=== PATIENT | female | born 1945 | race Caucasian/White ===

== ENCOUNTER 2016-08-06 14:19 | Inpatient (IN) | payer MEDICARE, OTHER ==
[~2016-08-06] VITALS: Ht 175.3 cm; Wt 76.5 kg
[~2016-08-06 14:19] MED LIST: CARV3.122 PO; CHOL10003 PO; CITA20TA9 PO; CYAN25008 PO; GUAI118L20 PO; LEVO100T5 PO; LEVO500T8 PO; LOSA25TA4 PO
[2016-08-06 15:00] VITALS: BP 125/67
[2016-08-06] MEDS ORDERED: 0.9 % SODIUM CHLORIDE 10 ML DISP.SYRIN. IV PRN (15:00)
[2016-08-06] MEDS ORDERED: MAG HYDROX/ALUMINUM HYD/SIMETH 30 ML ORAL.SUSP PO PRN (15:00)
[2016-08-06 15:20] VITALS: BP 122/64
--- NOTE | 2016-08-06 15:22 | PDOC1 ---
KI HYATT SUPPLY CONTROLLER 08/06/16 1522: History and Physical Visit Information Date of Admission: Aug 06, 2016 at 14:20 Source: Chart review, Patient History of Present Illness History of Present Illness This is a pleasant 71 yo female admitted for complains of SOA. Pt was seen briefly in our office and was noted with symptoms of acute CHF. Reports that in the last 3 months she has been having SOA and PEREIRA but not as bad as it has been in the last 2 weeks. She thought that this was related to bad reflux. In the last 2 weeks she has noticed her legs become more swollen, increasing PEREIRA, SOA at rest. orthopnea, PND, feeling bloated and anorexia. Her activity tolerance has been reduced significantly. Denies any chest pain,palpitations. She has been compliant with medications but does not utilize any diuretics. She is significant for nonobstructive CAD, past NICM and TIA on 01/2016. Denies any recent long distance travel and no prior VTE. Current Problem List Problems: (1) CAD (coronary artery disease) (2) Hypertension (3) Hyperlipidemia (4) Hypothyroidism (5) Venous (peripheral) insufficiency (6) Acute CHF Cardiac Risk Factors Cardiac Risk Factors: Hypertension, Hyperlipidemia, Other (CAD) Past Medical History Cardiovascular: CAD, CHF, HTN, Other (NICM) Pulmonary: Pneumonia, Other (pulmonary nodule) CENTRAL NERVOUS SYSTEM: TIA GI: No pertinent hx Heme/Onc: No pertinent hx Hepatobiliary: No pertinent hx Psych: Anxiety Musculoskeletal: Osteoarthritis Infectious disease: No pertinent hx ENT: Allergic Rhinitis Renal/: No pertinent hx Endocrine: Hypothyroidism Dermatology: No pertinent hx Past Surgical History Past Surgical History: Appendectomy, Tubal Ligation, Tonsillectomy, Hysterectomy Allergies Allergies Allergies Coded Allergies Type Severity Reaction Last Updated Verified No Known Drug Allergies 01/19/15 No Social History Smoke: No ALCOHOL: none Drugs: None Lives: with Family Family History Family History: Coronary Artery Disease (father and mother) ROS Review of System 14 point ROS evaluated with pertinent positives noted per HPI Physical Exam General: Alert, Oriented X3, Cooperative, mild distress HEENT: Atraumatic, Mucous membr. moist/pink Lungs: Other (bibasilar crackles) Heart: Regular rate, Normal S1, Normal S2, Other (3/6 systolic murmur to LLS border; S3) CHEST: Shortness of Breath, SOB with Exertion Abdomen: Soft, No tenderness Extremities: No cyanosis, Other (3+ bilateral pitting edema) Skin: No breakdown, No significant lesion Neuro: Normal speech, Sensation intact ECG EKG: Sinus tachycardia VTE Prophylaxis Ordered VTE Prophylaxis Devices: Yes VTE Pharmacological Prophylaxi: No Assessment/Plan Assessment/Plan Conclusion: [facility] 1. 50% stenosis involving the right coronary artery. No significant stenosis noted. 2. Severe global left ventricle systolic dysfunction with ejection fraction estimated at 25%. 3. 1-2 plus mitral regurgitation. No aortic stenosis. Recommendations Optimization of medical therapy for severe nonischemic cardiomyopathy. Repeat 2 -D echo in 3 months to evaluate the need for AICD implantation for primary prevention of sudden cardiac . DATE: 01/19/15906 <Conclusion> TTE Moderate LV systolic dysfunction with global hypokinesis. EF 35% No significant valvular abnormalities. Mild pulmonary hypertension with an estimated RVSP of 42 mm Hg. Small pericardial effusion. Moderate pleural effusion. DATE: 01/10/15905 1. Acute on chronic combined systolic/diastolic CHF 2. Peripheral venous insufficiency 3. Nonobstructive CAD 4. NICM 5. HLP 6. HTN: controlled 7. Hypothyroidism 8. Recent TIA: 01/2016 noted 9. Pericardial effusion via recent CT chest (not in this facility) Recommendations 1. Start IV lasix therapy 2. VTE and GI prophylaxis 3. Serial cardiac enzymes 4. CMP, Mg, TSH, lipid panel, pro NT bnp 5. TTE. MPI tomorrow. EKG 6. LE venous reflux studies 7. CXR PA and LAT. 8. Continue with secondary prevention 9. Continue with home meds. PRINCE MEZA MD 08/07/16 0816: History and Physical Assessment/Plan Assessment/Plan Patient seen and examined 08/06/16. Agree with ACID PUMPER's assessment and plan. Start intravenous Lasix for acute on chronic combined systolic and diastolic heart failure. Check 2-D echo to evaluate pericardial effusion noted on CT scan. Since she has history of nonobstructive coronary artery disease and is presently complaining of chest pain, we will obtain Lexiscan nuclear stress test to rule out ischemia. Resume home medications. Problem Qualifiers (1) CAD (coronary artery disease): Associated angina: without angina (2) Hypertension: Hypertension type: essential hypertension Qualified Code: I10 - Essential ( primary) hypertension (3) Hyperlipidemia: Hyperlipidemia type: pure hypercholesterolemia Qualified Code: E78.00 - Pure hypercholesterolemia, unspecified (4) Hypothyroidism: Hypothyroidism type: acquired Qualified Code: E03.9 - Hypothyroidism, unspecified (5) Acute CHF: Congestive heart failure type: combined Qualified Code: I50.41 - Acute combined systolic (congestive) and diastolic (congestive) heart failure KI HYATT APRN Aug 06, 2016 15:22 PRINCE MEZA MD Aug 07, 2016 08:16
[2016-08-06 15:35] LABS: BASO # 0.1 x10^3/uL (0.0-0.2); BASO % 1 % (0-3); EOS % 10 % (0-3); HEMOGLOBIN 9.2 g/dL (12.0-15.5); LYMPH % 36 % (24-48); MEAN CORPUSCULAR HEMOGLOBIN 32 pg (25-35); MEAN CORPUSCULAR HGB CONC 33 g/dL (31-37); MEAN CORPUSCULAR VOLUME 97 fL (79-100); MONO % 7 % (0-9); NEUT % 45 % (31-73); PLATELET COUNT 269 x10^3/uL (140-400); RED BLOOD COUNT 2.88 x10^6/uL (3.50-5.40); RED CELL DISTRIBUTION WIDTH 15.6 % (11.5-14.5); WHITE BLOOD COUNT 5.4 x10^3/uL (4.0-11.0)
[2016-08-06 15:42] LABS: INR 1.1 (0.8-1.1); PROTHROMBIN TIME PATIENT 13.4 SEC (11.7-14.0)
--- NOTE | 2016-08-06 15:44 | EKG ---
[facility] [address] [place] [address] Test Date: 2016-08-06 Test Time: 15:42:22 Pat Name: PAULA ROMAN Department: Room: 266 1 Gender: F Temporary Data Entry Clerk: : 1945 Requested By: KI HYATT Order Number: [id number] Reading MD: Jules Robbins Measurements Intervals [place] Rate: 90 P: 8 AK: 146 QRS: 64 QRSD: 120 T: -35 QT: 388 QTc: 479 Interpretive Statements SINUS RHYTHM VENTRICULAR PREMATURE COMPLEX(ES) LOW LIMB LEAD VOLTAGE ST & T ABNORMALITY, CONSIDER RECENT ANTERIOR MYOCARDIAL OR PERICARDIAL DAMAGE ABNORMAL ECG RI6.01 No previous ECG available for comparison Electronically Signed On 08-11-2016 13:37:07 [employer] ARCHITECT by Jules Robbins
[2016-08-06 15:53] LABS: ALBUMIN 3.4 g/dL (3.4-5.0); ALBUMIN/GLOBULIN RATIO 1.1 (1.0-1.7); CALCIUM 10.5 mg/dL (8.5-10.1); CREATININE 1.3 mg/dL (0.6-1.0); GFR 40.2; MAGNESIUM 1.9 mg/dL (1.8-2.4); POTASSIUM 4.3 mmol/L (3.5-5.1); TOTAL BILIRUBIN 1.5 mg/dL (0.2-1.0); TOTAL PROTEIN 6.5 g/dL (6.4-8.2)
[2016-08-06 16:01] LABS: CREATINE KINASE 28 U/L (26-192)
[2016-08-06] MEDS ORDERED: CALC500T10 PO (16:16)
[2016-08-06] MEDS ORDERED: ATOR40TA59 PO (16:16)
[2016-08-06] MEDS ORDERED: ASPI81TA9 PO (16:16)
[2016-08-06] MEDS: LEVOTHYROXINE 100 MCG TABLET PO SCH (17:00)
[2016-08-06] MEDS ORDERED: CARVEDILOL 3.125 MG TABLET PO SCH (17:00)
[2016-08-06] MEDS ORDERED: CITALOPRAM 20 MG TABLET. PO SCH (17:00)
[2016-08-06] MEDS: LOSARTAN POTASSIUM 25 MG TABLET. PO SCH (17:00)
[2016-08-06] MEDS: ASPIRIN ENTERIC COATED 81 MG TABLET.DR. PO SCH (17:00)
[2016-08-06] MEDS: FUROSEMIDE 40 MG/4 ML VIAL IVP SCH (17:40)
[2016-08-06 17:54] LABS: BILIRUBIN,URINE NEGATIVE (NEG); GLUCOSE,URINE NEGATIVE (NEG); NITRITE,URINE NEGATIVE (NEG); PH,URINE 5.5; PROTEIN,URINE 100 mg/dL (NEG-TRACE)
[2016-08-06 18:05] LABS: WBC,URINE >40 /HPF (0-4)
[2016-08-06 18:07] LABS: BACTERIA,URINE 0 /HPF (0-FEW)
[2016-08-06 18:48] VITALS: BP 108/53
[2016-08-06] MEDS: FAMOTIDINE 20 MG TABLET. PO SCH (20:17)
[2016-08-06] MEDS: ATORVASTATIN CALCIUM 40 MG TABLET. PO SCH (20:18)
[2016-08-06] MEDS: CARVEDILOL 3.125 MG TABLET PO SCH (20:18)
[2016-08-06] MEDS: ENOXAPARIN 40 MG/0.4 ML DISP.SYRIN. SQ SCH (20:18)
[2016-08-06 22:38] VITALS: BP 120/57
[2016-08-07 03:00] VITALS: BP 127/60
[2016-08-07 05:46] LABS: BASO # 0.1 x10^3/uL (0.0-0.2); BASO % 1 % (0-3); EOS % 9 % (0-3); HEMATOCRIT 26.7 % (36.0-47.0); LYMPH # 1.7 x10^3/uL (1.0-4.8); LYMPH % 31 % (24-48); MEAN CORPUSCULAR HEMOGLOBIN 32 pg (25-35); MEAN CORPUSCULAR HGB CONC 34 g/dL (31-37); MEAN CORPUSCULAR VOLUME 96 fL (79-100); MONO % 8 % (0-9); NEUT % 52 % (31-73); PLATELET COUNT 253 x10^3/uL (140-400); RED BLOOD COUNT 2.79 x10^6/uL (3.50-5.40); RED CELL DISTRIBUTION WIDTH 15.8 % (11.5-14.5); WHITE BLOOD COUNT 5.5 x10^3/uL (4.0-11.0)
[2016-08-07 06:11] LABS: CALCIUM 10.3 mg/dL (8.5-10.1); CREATININE 1.6 mg/dL (0.6-1.0); GFR 31.6; MAGNESIUM 1.8 mg/dL (1.8-2.4); POTASSIUM 3.9 mmol/L (3.5-5.1)
[2016-08-07 06:19] LABS: CHOLESTEROL/HDL RATIO 2.6
[2016-08-07] MEDS: LEVOTHYROXINE 100 MCG TABLET PO SCH (06:25)
[2016-08-07] MEDS: FUROSEMIDE 40 MG/4 ML VIAL IVP SCH ×2 (07:00→11:31)
[2016-08-07 07:44] VITALS: BP 120/63
[2016-08-07] MEDS ORDERED: REGADENOSON 0.4 MG/5 ML DISP.SYRIN. IV ONE (08:00)
--- NOTE | 2016-08-07 08:21 | RAD ---
Exam performed: 2 views of the chest. Indication: chf, history of hypertension Date of Service:08/06/2016 4:58 PM . Comparison : Noncontrast CT scan performed during nuclear medicine PET scan from 04/12/17 Findings: PA and lateral radiographs of the chest reveal a mildly enlarged cardiomediastinal contour. Pulmonary vascularity appears unremarkable. Small retrocardiac opacity is noted. Small left pleural effusion. The visualized osseous structures are unremarkable. Impression: Apparent cardiomegaly with small left pleural effusion. Right paracardiac/Retrocardiac density is noted which could be related to a hiatal hernia or infiltrate. Note is made that no definite hiatal hernia was identified on the noncontrast images. Follow-up chest x-ray versus noncontrast CT scan may be of additional benefit.
--- NOTE | 2016-08-07 10:35 | PDOC ---
KI HYATT SURVEY ENGINEER 08/07/16 1035: CARDIO Progress Notes Date and Time Date of Service 08/07/2016 Time of Evaluation 1000 Subjective Subjective: No Chest Pain, No shortness of breath, No Palpitations, No Dizziness, Other (still have heavy feeling in mid chest) Vitals Vitals Vital Signs Date Time Temp Pulse Resp B/P Pulse Ox O2 Delivery O2 Flow Rate FiO2 08/07/16 08:00 Room Air 08/07/16 07:44 97.3 70 16 120/63 94 97.3 Weight Weight [ ] Input and Output Intake and Output Intake and Output 08/07/16 07:00 Intake Total 0 ml Output Total 2750 ml Balance -2750 ml Intake Oral 0 ml Output Urine Total 2750 ml Laboratory Labs Laboratory Tests Test 08/06/16 15:20 08/06/16 16:10 08/06/16 18:15 08/07/16 00:20 White Blood Count 5.4x10^3/uL (4.0-11.0) Red Blood Count 2.88x10^6/uL (3.50-5.40) Hemoglobin 9.2g/dL (12.0-15.5) Hematocrit 28.0% (36.0-47.0) Mean Corpuscular Volume 97fL (79-100) Mean Corpuscular Hemoglobin 32pg (25-35) Mean Corpuscular Hemoglobin Concent 33g/dL (31-37) Red Cell Distribution Width 15.6% (11.5-14.5) Platelet Count 269x10^3/uL (140-400) Neutrophils (%) (Auto) 45% (31-73) Lymphocytes (%) (Auto) 36% (24-48) Monocytes (%) (Auto) 7% (0-9) Eosinophils (%) (Auto) 10% (0-3) Basophils (%) (Auto) 1% (0-3) Neutrophils # (Auto) 2.4x10^3uL (1.8-7.7) Lymphocytes # (Auto) 2.0x10^3/uL (1.0-4.8) Monocytes # (Auto) 0.4x10^3/uL (0.0-1.1) Eosinophils # (Auto) 0.5x10^3/uL (0.0-0.7) Basophils # (Auto) 0.1x10^3/uL (0.0-0.2) Prothrombin Time 13.4SEC (11.7-14.0) Prothromb Time International Ratio 1.1 (0.8-1.1) Sodium Level 143mmol/L (136-145) Potassium Level 4.3mmol/L (3.5-5.1) Chloride Level 107mmol/L (98-107) Carbon Dioxide Level 27mmol/L (21-32) Anion Gap 9 (6-14) Blood Urea Nitrogen 32mg/dL (7-20) Creatinine 1.3mg/dL (0.6-1.0) Estimated GFR (Cockcroft-Gault) 40.2 BUN/Creatinine Ratio 25 (6-20) Glucose Level 98mg/dL (70-99) Calcium Level 10.5mg/dL (8.5-10.1) Magnesium Level 1.9mg/dL (1.8-2.4) Total Bilirubin 1.5mg/dL (0.2-1.0) Aspartate Amino Transf (AST/SGOT) 23U/L (15-37) Alanine Aminotransferase (ALT/SGPT) 35U/L (14-59) Alkaline Phosphatase 161U/L (46-116) Creatine Kinase 28U/L (26-192) Creatine Kinase MB (Mass) 1.0ng/mL (0.0-3.6) Creatine Kinase MB Relative Index % (0-4) CY-Blu-P-Type Natriuretic Peptide 9279pg/mL (0-124) Total Protein 6.5g/dL (6.4-8.2) Albumin 3.4g/dL (3.4-5.0) Albumin/Globulin Ratio 1.1 (1.0-1.7) Thyroid Stimulating Hormone (TSH) 4.682uIU/mL (0.358-3.74) Urine Collection Type Unknown Urine Color Yellow Urine Clarity Clear Urine pH 5.5 Urine Specific [place] 1.025 Urine Protein 100mg/dL (NEG-TRACE) Urine Glucose (UA) Negativemg/dL (NEG) Urine Ketones (Stick) Negativemg/dL (NEG) Urine Blood Moderate (NEG) Urine Nitrite Negative (NEG) Urine Bilirubin Negative (NEG) Urine Urobilinogen Dipstick 1.0mg/dL (0.2 mg/dL) Urine Leukocyte Esterase Negative (NEG) Urine RBC 6-10/HPF (0-2) Urine WBC >40/HPF (0-4) Urine Bacteria 0/HPF (0-FEW) Urine Hyaline Casts Moderate/HPF Urine Granular Casts Occasional/HPF Urine Waxy Casts Occasional/HPF Urine Mucus Slight/LPF Troponin I Quantitative 0.019ng/mL (0.000-0.055) 0.019ng/mL (0.000-0.055) Test 08/07/16 05:45 White Blood Count 5.5x10^3/uL (4.0-11.0) Red Blood Count 2.79x10^6/uL (3.50-5.40) Hemoglobin 9.0g/dL (12.0-15.5) Hematocrit 26.7% (36.0-47.0) Mean Corpuscular Volume 96fL (79-100) Mean Corpuscular Hemoglobin 32pg (25-35) Mean Corpuscular Hemoglobin Concent 34g/dL (31-37) Red Cell Distribution Width 15.8% (11.5-14.5) Platelet Count 253x10^3/uL (140-400) Neutrophils (%) (Auto) 52% (31-73) Lymphocytes (%) (Auto) 31% (24-48) Monocytes (%) (Auto) 8% (0-9) Eosinophils (%) (Auto) 9% (0-3) Basophils (%) (Auto) 1% (0-3) Neutrophils # (Auto) 2.9x10^3uL (1.8-7.7) Lymphocytes # (Auto) 1.7x10^3/uL (1.0-4.8) Monocytes # (Auto) 0.4x10^3/uL (0.0-1.1) Eosinophils # (Auto) 0.5x10^3/uL (0.0-0.7) Basophils # (Auto) 0.1x10^3/uL (0.0-0.2) Sodium Level 144mmol/L (136-145) Potassium Level 3.9mmol/L (3.5-5.1) Chloride Level 108mmol/L (98-107) Carbon Dioxide Level 30mmol/L (21-32) Anion Gap 6 (6-14) Blood Urea Nitrogen 30mg/dL (7-20) Creatinine 1.6mg/dL (0.6-1.0) Estimated GFR (Cockcroft-Gault) 31.6 Glucose Level 106mg/dL (70-99) Calcium Level 10.3mg/dL (8.5-10.1) Magnesium Level 1.8mg/dL (1.8-2.4) Troponin I Quantitative 0.018ng/mL (0.000-0.055) Triglycerides Level 60mg/dL (0-150) Cholesterol Level 116mg/dL (0-200) LDL Cholesterol, Calculated 60mg/dL (0-100) VLDL Cholesterol, Calculated 12mg/dL (0-40) HDL Cholesterol 44mg/dL (40-60) Cholesterol/HDL Ratio 2.6 Physical Exam HEENT: Neck Supple W Full Motion Chest: Symmetric LUNGS: Clear to Auscultation Heart: S1S2, RRR Abdomen: Soft N/T Extremities: No Calf Tenderness, Other (2+ bilateral LE pitting edema) Neurology: alert, oriented, follow commands Assessment Assessment 1. Acute on chronic combined systolic/diastolic CHF: improving 2. Peripheral venous insufficiency 3. Nonobstructive CAD: serial cardiac enzymes normal 4. NICM 5. HLP: lipids on goal 6. HTN: controlled 7. Hypothyroidism: TSH nontherapeutic 8. Recent TIA: 01/2016 noted 9. Pericardial effusion via recent CT chest (at [place]) 10. Pulmonary HTN/pulmonary nodule: followed closely by pulmonary as outpt 11. 3 mm right renal calculus with microscopic hematuria Recommendations 1. Continue with diuretic therapy. Anticipating to convert to PO tomorrow 2. BMP, Mg 3. Venous reflux study pending 4. TTE/MPI today 5. Continue with secondary prevention 6. Consult urology 7. Increase Synthroid PRINCE MEZA MD 08/07/16 1651: CARDIO Progress Notes Assessment Assessment Patient seen and examined. Agree with HOME LIGHTING ADVISER's assessment and plan. Symptoms improved with intravenous Lasix. 2-D echo showed LVEF 50% that has improved since last echocardiogram. Lexiscan nuclear stress test did not show any significant ischemia. Venous reflux study showed significant reflux involving left greater saphenous vein. We will consider outpatient therapy as an outpatient. Possibly discharge home tomorrow. IK HYATT APRN Aug 07, 2016 10:35 PRINCE MEZA MD Aug 07, 2016 16:51
--- NOTE | 2016-08-07 10:48 | CARD ---
APPROVED REPORT EXAM: Two-dimensional and M-mode echocardiogram with Doppler and color Doppler. Other Information Quality : Average Rhythm : NSR INDICATION Cardiac Disease: CAD Congestive Heart Failure 2D DIMENSIONS RVDd2.7 (2.9-3.5cm)Left Atrium(2D)4.1 (1.6-4.0cm) IVSd1.6 (0.7-1.1cm)Aortic Root(2D)3.0 (2.0-3.7cm) LVDd4.7 (3.9-5.9cm)LVOT Diameter2.0 (1.8-2.4cm) PWd1.6 (0.7-1.1cm)LVDs3.4 (2.5-4.0cm) FS (%) 27.3 %SV55.4 ml LVEF(%)53.1 (>50%) Aortic Valve AoV Peak Alok.137.9cm/sAoV VTI24.7cm AO Peak GR.7.6mmHgLVOT Peak Alok.106.9cm/s AO Mean GR.5mmHgAVA (VMAX)2.45cm2 ANJEL (VTI)2.90gx6OV P 1/2 Ylje179db Mitral Valve MV E Xrbhmgxd234.4cm/sMV E Peak Gr.8mmHg MV DECEL WGSU544koLB A Jqivwbbn48.4cm/s MV E Mean Gr.4mmHgMV LWH78th E/A Ratio1.5MV A Ixmstnzc597az MVA (PHT)5.76cm2 Tricuspid Valve TR P. Jgmlmfjl958ka/sRAP BMQEDBYQ8xiKt TR Peak Gr.29seGdVTQD33lgBo Pulmonary Vein S1 Snqdztnj33.7cm/sD2 Pwwuebxs76.0cm/s LEFT VENTRICLE The left ventricle is normal size. There is mild concentric left ventricular hypertrophy. Left ventri kinza systolic function is low normal. The Ejection Fraction is 50%. There is normal LV segmental wall motion. The left ventricular diastolic function and filling is normal for age. RIGHT VENTRICLE The right ventricle is normal size. The right ventricular systolic function is normal. ATRIA The left atrium size is normal. The right atrium size is normal. The interatrial septum is intact wit h no evidence for an atrial septal defect or patent foramen ovale as noted on 2-D or Doppler imaging. AORTIC VALVE The aortic valve is normal in structure. The aortic valve is trileaflet. Doppler and Color Flow revea led moderate aortic regurgitation. There is no significant aortic valvular stenosis. MITRAL VALVE The mitral valve is normal in structure and function. There is no mitral valve stenosis. Doppler and Color Flow revealed mild to moderate mitral regurgitation. TRICUSPID VALVE The tricuspid valve is normal in structure and function. Doppler and Color Flow revealed mild to mode rate tricuspid regurgitation. The PA pressure was estimated at 46 mmHg. There is no tricuspid valve s tenosis. PULMONIC VALVE The pulmonic valve is not well visualized. Doppler and Color Flow revealed no pulmonic valvular regur gitation. There is no pulmonic valvular stenosis. GREAT VESSELS The aortic root is normal in size. Normal pulmonary venous flow (Doppler). The IVC is normal in size and collapses >50% with inspiration. PERICARDIAL EFFUSION There is a small-moderate pericardial effusion. Critical Notification Critical Value: No <Conclusion> Left ventricle systolic function is low normal. The Ejection Fraction is 50%. Moderate aortic regurgitation. Mild to moderate mitral regurgitation. Mild to moderate tricuspid regurgitation. The PA pressure was estimated at 46 mmHg. There is a small-moderate pericardial effusion.
[2016-08-07 11:00] VITALS: BP 118/63
[2016-08-07] MEDS: ASPIRIN ENTERIC COATED 81 MG TABLET.DR. PO SCH (11:29)
[2016-08-07] MEDS: CARVEDILOL 3.125 MG TABLET PO SCH ×2 (11:29→20:47)
[2016-08-07] MEDS: LOSARTAN POTASSIUM 25 MG TABLET. PO SCH (11:29)
--- NOTE | 2016-08-07 13:08 | PDOC ---
SUBJECTIVE Subjective Pt. with hx. of right renal stone and renal cysts OBJECTIVE Objective No symptoms Vital Signs Vital Signs Date Time Temp Pulse Resp B/P Pulse Ox O2 Delivery O2 Flow Rate FiO2 08/07/16 11:29 87 118/63 08/07/16 11:29 87 118/63 08/07/16 11:00 97.7 87 16 118/63 98 Room Air 97.7 08/07/16 08:00 Room Air 08/07/16 07:44 97.3 70 16 120/63 94 Room Air 97.3 08/07/16 03:00 98.0 84 16 127/60 98 Room Air 98.0 08/06/16 22:38 98.0 76 18 120/57 99 Room Air 98.0 08/06/16 20:18 85 108/53 08/06/16 19:26 Room Air 08/06/16 18:48 97.7 85 18 108/53 95 Room Air 97.7 08/06/16 18:22 Room Air 08/06/16 15:20 97.9 82 20 122/64 100 Room Air 97.9 08/06/16 15:00 125/67 I & O Intake and Output 08/07/16 07:00 Intake Total 0 ml Output Total 2750 ml Balance -2750 ml Intake Oral 0 ml Output Urine Total 2750 ml PHYSICAL EXAM Physical Exam abd-soft, non-tender UA-pos for rbcs and wbcs ASSESSMENT/PLAN Assessment/Plan get renal sono urine culture follow up with urology FABRIC FINISHER Claire Sheppard in 3 weeks Problems: COMMENT Lab Laboratory Tests Test 08/06/16 15:20 08/06/16 16:10 08/06/16 18:15 08/07/16 00:20 White Blood Count 5.4x10^3/uL (4.0-11.0) Red Blood Count 2.88x10^6/uL (3.50-5.40) Hemoglobin 9.2g/dL (12.0-15.5) Hematocrit 28.0% (36.0-47.0) Mean Corpuscular Volume 97fL (79-100) Mean Corpuscular Hemoglobin 32pg (25-35) Mean Corpuscular Hemoglobin Concent 33g/dL (31-37) Red Cell Distribution Width 15.6% (11.5-14.5) Platelet Count 269x10^3/uL (140-400) Neutrophils (%) (Auto) 45% (31-73) Lymphocytes (%) (Auto) 36% (24-48) Monocytes (%) (Auto) 7% (0-9) Eosinophils (%) (Auto) 10% (0-3) Basophils (%) (Auto) 1% (0-3) Neutrophils # (Auto) 2.4x10^3uL (1.8-7.7) Lymphocytes # (Auto) 2.0x10^3/uL (1.0-4.8) Monocytes # (Auto) 0.4x10^3/uL (0.0-1.1) Eosinophils # (Auto) 0.5x10^3/uL (0.0-0.7) Basophils # (Auto) 0.1x10^3/uL (0.0-0.2) Prothrombin Time 13.4SEC (11.7-14.0) Prothromb Time International Ratio 1.1 (0.8-1.1) Sodium Level 143mmol/L (136-145) Potassium Level 4.3mmol/L (3.5-5.1) Chloride Level 107mmol/L (98-107) Carbon Dioxide Level 27mmol/L (21-32) Anion Gap 9 (6-14) Blood Urea Nitrogen 32mg/dL (7-20) Creatinine 1.3mg/dL (0.6-1.0) Estimated GFR (Cockcroft-Gault) 40.2 BUN/Creatinine Ratio 25 (6-20) Glucose Level 98mg/dL (70-99) Calcium Level 10.5mg/dL (8.5-10.1) Magnesium Level 1.9mg/dL (1.8-2.4) Total Bilirubin 1.5mg/dL (0.2-1.0) Aspartate Amino Transf (AST/SGOT) 23U/L (15-37) Alanine Aminotransferase (ALT/SGPT) 35U/L (14-59) Alkaline Phosphatase 161U/L (46-116) Creatine Kinase 28U/L (26-192) Creatine Kinase MB (Mass) 1.0ng/mL (0.0-3.6) Creatine Kinase MB Relative Index % (0-4) NC-Ctj-R-Type Natriuretic Peptide 9279pg/mL (0-124) Total Protein 6.5g/dL (6.4-8.2) Albumin 3.4g/dL (3.4-5.0) Albumin/Globulin Ratio 1.1 (1.0-1.7) Thyroid Stimulating Hormone (TSH) 4.682uIU/mL (0.358-3.74) Urine Collection Type Unknown Urine Color Yellow Urine Clarity Clear Urine pH 5.5 Urine Specific [place] 1.025 Urine Protein 100mg/dL (NEG-TRACE) Urine Glucose (UA) Negativemg/dL (NEG) Urine Ketones (Stick) Negativemg/dL (NEG) Urine Blood Moderate (NEG) Urine Nitrite Negative (NEG) Urine Bilirubin Negative (NEG) Urine Urobilinogen Dipstick 1.0mg/dL (0.2 mg/dL) Urine Leukocyte Esterase Negative (NEG) Urine RBC 6-10/HPF (0-2) Urine WBC >40/HPF (0-4) Urine Bacteria 0/HPF (0-FEW) Urine Hyaline Casts Moderate/HPF Urine Granular Casts Occasional/HPF Urine Waxy Casts Occasional/HPF Urine Mucus Slight/LPF Troponin I Quantitative 0.019ng/mL (0.000-0.055) 0.019ng/mL (0.000-0.055) Test 08/07/16 05:45 White Blood Count 5.5x10^3/uL (4.0-11.0) Red Blood Count 2.79x10^6/uL (3.50-5.40) Hemoglobin 9.0g/dL (12.0-15.5) Hematocrit 26.7% (36.0-47.0) Mean Corpuscular Volume 96fL (79-100) Mean Corpuscular Hemoglobin 32pg (25-35) Mean Corpuscular Hemoglobin Concent 34g/dL (31-37) Red Cell Distribution Width 15.8% (11.5-14.5) Platelet Count 253x10^3/uL (140-400) Neutrophils (%) (Auto) 52% (31-73) Lymphocytes (%) (Auto) 31% (24-48) Monocytes (%) (Auto) 8% (0-9) Eosinophils (%) (Auto) 9% (0-3) Basophils (%) (Auto) 1% (0-3) Neutrophils # (Auto) 2.9x10^3uL (1.8-7.7) Lymphocytes # (Auto) 1.7x10^3/uL (1.0-4.8) Monocytes # (Auto) 0.4x10^3/uL (0.0-1.1) Eosinophils # (Auto) 0.5x10^3/uL (0.0-0.7) Basophils # (Auto) 0.1x10^3/uL (0.0-0.2) Sodium Level 144mmol/L (136-145) Potassium Level 3.9mmol/L (3.5-5.1) Chloride Level 108mmol/L (98-107) Carbon Dioxide Level 30mmol/L (21-32) Anion Gap 6 (6-14) Blood Urea Nitrogen 30mg/dL (7-20) Creatinine 1.6mg/dL (0.6-1.0) Estimated GFR (Cockcroft-Gault) 31.6 Glucose Level 106mg/dL (70-99) Calcium Level 10.3mg/dL (8.5-10.1) Magnesium Level 1.8mg/dL (1.8-2.4) Troponin I Quantitative 0.018ng/mL (0.000-0.055) Triglycerides Level 60mg/dL (0-150) Cholesterol Level 116mg/dL (0-200) LDL Cholesterol, Calculated 60mg/dL (0-100) VLDL Cholesterol, Calculated 12mg/dL (0-40) HDL Cholesterol 44mg/dL (40-60) Cholesterol/HDL Ratio 2.6 SAL CORONA MD Aug 07, 2016 13:08
--- NOTE | 2016-08-07 13:32 | RAD ---
APPROVED REPORT Test Type: Pharmacological Stress Nurse/Tech: Olena Munoz RN Test Indications: CHF, CAD, Dyspnea Cardiac History: see ehr Medications: see ehr Medical History: see ehr Resting ECG: SR Resting Heart Rate: 85 bpm Resting Blood Pressure: 109/57mmHg Pretest Chest Pain: None Nurse/Tech Notes Lungs CTA, S1, S2 Consent: The procedure was explained to the patient in lay terms. Informed consent was witnessed. Giancarlo eout was entered into [employer]. History and Stress Test performed by David SorensenNМария Pharm. Details Pharmacologic stress testing was performed using 0.4mg per 5ml of regadenoson given intravenously ove r 7-10 seconds. Stress Symptoms No chest pain or symptoms. POST EXERCISE Reason for Termination: Infusion complete Max HR: 117 bpm Max Blood Pressure: 116/53mmHg Blood Pressure response to exercise: Normal blood pressure response during stress. Chest Pain: No. Arrhythmia: No. ST Change: No. INTERPRETATION Stress EKG Conclusion: Baseline EKG showed sinus rhythm with IVCD. No ischemic changes at peak stres s. No arrhythmias. Imaging Protocol IMAGE PROTOCOL: Rest Tc-99m/stress Tc-99m 1 day Rest: Stress: Viability: Radiopharm.Tc99m YmkrgurqkNk89e Sestamibi Qwwz56dKf 32mCi Duration 15min. 10min. Img Date 08/07/2016 08/07/2016 Inj-Img Ntzl62pva. 60min. Rest Admin Site:IV - Left ForearmAdministrator:Laura Lion RT (R)(N) Stress Admin Site: IV - Left ForearmAdministrator: Sachin Richard RT (R)(N) STRESS DATA End Diast. Vol.130.0mlAv. Heart Rate87.0bpm End Syst. Vol.62.0mlCO Index BSA0.0L/min Myocardial Gwsu144.0gEject. Fstqqjvt12.0% Stress Rates Pk. Fill Rate2.33EDV/secLVtime Pk. Fill 172.33msec Pk. Empty Rate3.83ESV/secLVtime Pk. Clzia430.54msec 06/10 Pk. Fill0.81EDV/sec Stress Scores Regional WT1.00Summed WT15.00 Regional WM0.00Summed WM3.00 Study quality was good. Left Ventricular size was Normal at Rest and Stress. Lung uptake was Normal. Left Ventricular ejection fraction is 52%. The rest and stress images show normal perfusion, normal contraction and thickening. LV Perf. Quant 17 Seg. SSS0.00 17 Seg. SRS0.00 17 Seg. SDS0.00 Stress Defect Extent (% LAD)0.00Rest Defect Extent (% LAD)0.00Rev. Defect Extent (% LAD)0.00 Stress Defect Extent (% LCX) 0.00Rest Defect Extent (% LCX)0.00Rev. Defect Extent (% LCX)0.00 Stress Defect Extent (% RCA)0.00Rest Defect Extent (% RCA)0.00Rev. Defect Extent (% RCA)0.00 Stress Defect Extent (% DAVID)0.00Rest Defect Extent (% DAVID)0.00Rev. Defect Extent (% DAVID)0.00 Conclusion 1. Regadenoson cardioisotope stress test did not show any evidence of ischemia or infarct. 2. Normal left ventricular systolic function with ejection fraction calculated at 52%. 3. Low risk for cardiac events.
--- NOTE | 2016-08-07 15:20 | RAD ---
Exam performed: Renal sonogram. Indication: History of renal cysts Date of Service: 08/07/16 . Comparison: Noncontrast CT abdomen and pelvis performed during nuclear medicine PET scan from 04/12/15 Technique: Real-time grayscale imaging of the kidneys is performed and images are obtained. Findings: The right kidney is asymmetrically smaller as compared to the left. The right kidney measures 9.4 x 4.3 x 4.1 cm. There is mild renal cortical thinning is noted. There is a 3.5 x 2.4 x 2.8 cm cyst in the inferior lateral portion of the right kidney. There is also a 2.7 x 1.8 x 2.0 cm septated cyst in the medial mid kidney. There is a 2.0 x 1.1 x 1.5 cm cyst also medially in the inferior pole. The left kidney measures 11.9 x 5.3 x 4.9 cm. There is a 2.6 x 2.0 x 2.1 cm cyst in the mid to inferior left kidney laterally. There is no hydronephrosis or perinephric fluid collection. The urinary bladder is well distended and appears normal. Impression: 1. Bilateral renal cysts including a somewhat septated cyst in the right kidney. CT or MRI of abdomen with contrast using a renal protocol may be obtained to rule out remote possibility of a cystic renal neoplasm.
[2016-08-07 15:28] VITALS: BP 121/60
[2016-08-07 18:53] VITALS: BP 115/60
[2016-08-07] MEDS: FAMOTIDINE 20 MG TABLET. PO SCH (20:47)
[2016-08-07] MEDS: ATORVASTATIN CALCIUM 40 MG TABLET. PO SCH (20:47)
[2016-08-07] MEDS: ENOXAPARIN 40 MG/0.4 ML DISP.SYRIN. SQ SCH (20:48)
[2016-08-07 23:00] VITALS: BP 116/50
[2016-08-08 03:00] VITALS: BP 117/50
[2016-08-08 04:43] LABS: CALCIUM 10.5 mg/dL (8.5-10.1); CREATININE 1.8 mg/dL (0.6-1.0); GFR 27.6; POTASSIUM 4.2 mmol/L (3.5-5.1)
--- NOTE | 2016-08-08 04:56 | CONS ---
DATE OF CONSULTATION: 08/07/2016 PATIENT'S ROOM: 266. HISTORY OF PRESENT ILLNESS: The patient is a very pleasant 71-year-old white female who was admitted to the Cardiology Service with shortness of breath and congestive heart failure. The patient was noted on recent chest CT to also have a right renal calculus and renal cyst. These are old finding, which were seen on previous scans several years ago. The patient is asymptomatic of her stone. She never passed a stone before. Her urine on admission showed 6-10 red cells and greater than 40 white cells, no bacteria. We will go ahead and get a culture; however, creatinine 1.6. The patient never had any urologic operation before. She has no urologic symptoms. Abdomen is soft, nontender, no CVA tenderness. I talked with the patient concerning her findings. We will go ahead and get a followup renal ultrasound for examination of her renal cyst as one of the right renal cysts appeared to be complex cysts several years ago. I do not recommend any further therapy on the right renal stone as it is nonobstructing and asymptomatic. We will get a culture and then treat if positive and the patient's creatinine has not returned normal range, we will have Nephrology consult, and then have patient follow up with Urology nurse practitioner, Claire Sheppard, in 3 weeks for followup urine check and then proceed accordingly. I certainly appreciate being allowed to participate in this patient's care. SLA CORONA MD DR: JONELLE/cheko JOB#: [id number] / [id number]
[2016-08-08] MEDS ORDERED: LEVOTHYROXINE 112 MCG TABLET PO SCH (07:00)
[2016-08-08 07:48] VITALS: BP 109/63
[2016-08-08 08:55] VITALS: BP 109/63
[2016-08-08] MEDS: CARVEDILOL 3.125 MG TABLET PO SCH (08:55)
[2016-08-08] MEDS: ASPIRIN ENTERIC COATED 81 MG TABLET.DR. PO SCH (08:55)
[2016-08-08] MEDS: LOSARTAN POTASSIUM 25 MG TABLET. PO SCH (08:55)
[2016-08-08] MEDS: FUROSEMIDE 40 MG/4 ML VIAL IVP SCH (09:00)
--- NOTE | 2016-08-08 10:15 | PDOC ---
SUBJECTIVE Subjective Patient is going home today. Has questions about her imaging OBJECTIVE Objective Pt alert and oriented in bed, asking questions. No distress noted Vital Signs Vital Signs Date Time Temp Pulse Resp B/P Pulse Ox O2 Delivery O2 Flow Rate FiO2 08/08/16 08:55 84 109/63 08/08/16 08:55 84 109/63 08/08/16 07:48 97.9 84 109/63 94 Room Air 97.9 08/08/16 03:00 97.5 77 117/50 98 Room Air 97.5 08/07/16 23:00 97.5 79 18 116/50 98 Room Air 97.5 08/07/16 20:47 83 115/60 08/07/16 20:00 Room Air 08/07/16 18:53 97.5 83 16 115/60 98 Room Air 97.5 08/07/16 15:28 97.9 83 16 121/60 95 Room Air 97.9 08/07/16 11:29 87 118/63 08/07/16 11:29 87 118/63 08/07/16 11:00 97.7 87 16 118/63 98 Room Air 97.7 I & O Intake and Output 08/08/16 07:00 Intake Total 1000 ml Output Total 1800 ml Balance -800 ml Intake Oral 1000 ml Output Urine Total 1800 ml PHYSICAL EXAM Physical Exam GEN: NAD HEENT: OP clear CV: S1S2 RESP: CTAB without wheezing, rhonchi, or crackles : no tenderness over the bladder ABD: NABS, SNT/ND EXT: No edema NEURO: AAO x 3 ASSESSMENT/PLAN Assessment/Plan Pt has renal cysts and elevated creatinine. Since she is going home today we will recheck creatinine when she comes in to urology on an outpatient basis in about 2-3 weeks. We will also redip the urine at that time to double check for blood in the urine. Based upon lab results, we will order follow up imaging dependent upon results. At that time, nephrology referral may be appropriate Problems: (1) Elevated serum creatinine (2) Renal cyst COMMENT Lab Laboratory Tests Test 08/08/16 04:05 Sodium Level 146mmol/L (136-145) Potassium Level 4.2mmol/L (3.5-5.1) Chloride Level 107mmol/L (98-107) Carbon Dioxide Level 31mmol/L (21-32) Anion Gap 8 (6-14) Blood Urea Nitrogen 29mg/dL (7-20) Creatinine 1.8mg/dL (0.6-1.0) Estimated GFR (Cockcroft-Gault) 27.6 Glucose Level 112mg/dL (70-99) Calcium Level 10.5mg/dL (8.5-10.1) Imaging Bilateral renal cysts including a somewhat septated cyst in the right kidney. CT or MRI of abdomen with contrast using a renal protocol may be obtained to rule out remote possibility of a cystic renal neoplasm. We will follow this up on an outpatient basis with patient. KAMILLA MCMILLAN APRN Aug 08, 2016 10:15
[2016-08-08] MEDS ORDERED: FURO-69 PO (10:20)
--- NOTE | 2016-08-08 10:24 | DISCH ---
DISCHARGE INSTRUCTIONS Condition on Discharge Condition on Discharge: Stable Activity After Discharge Activity Instructions for Disc: Resume previous activity Other activity instructions: Excercise 30 minutes at least 3x a week Weight Bearing Status after Di: No restrictions Diet after Discharge Diet after Discharge: Cardiac Checks after Discharge Checks after discharge: Check blood press - daily, Weigh Yourself Daily Contacting the DR. after DC Call your doctor for: If your condition worsens (Call if SOA increasing with activity or significant increased in leg swelling then call our office. Take lasix if this happens. Also if you gain 2 pounds in 1 day or 5 pounds in 1 week take lasix. Watch your sodium intake. Use support hose. ) Follow-Up Follow up with: Dr. Walton in 1 month Follow Up With: Dr. Middleton and Dr. De Los Santos as instructed. KI HAYTT APRN Aug 08, 2016 10:24
[2016-08-08] MEDS ORDERED: LEVO112T4 PO (10:26)
[2016-08-08] MEDS ORDERED: NEOMY/BACITR/POLYMYXIN OINT PACKET. TP ONE (11:00)
[2016-08-08] MEDS ORDERED: FAMO-63 PO (11:57)
--- NOTE | 2016-08-08 12:28 | PDOC3 ---
Discharge Summary Visit Information Date of Admission: Aug 06, 2016 Date of Discharge: Aug 08, 2016 Admitting Diagnosis: Acute CHF, peripheral venous insufficiency Final Diagnosis Problems Medical Problems: (1) Acute CHF Status: Acute (2) CAD (coronary artery disease) Status: Acute (3) Elevated serum creatinine Status: Acute (4) Hyperlipidemia Status: Acute (5) Hypertension Status: Acute (6) Hypothyroidism Status: Acute (7) Renal cyst Status: Acute (8) Venous (peripheral) insufficiency Status: Acute Brief Hospital Course Allergies Allergies Coded Allergies Type Severity Reaction Last Updated Verified No Known Drug Allergies 01/19/15 No Vital Signs Vital Signs Date Time Temp Pulse Resp B/P Pulse Ox O2 Delivery O2 Flow Rate FiO2 08/08/16 08:55 84 109/63 08/08/16 08:00 Room Air 08/08/16 07:48 97.9 94 97.9 08/07/16 23:00 18 Lab Results Laboratory Tests Test 08/06/16 15:20 08/06/16 16:10 08/06/16 18:15 08/07/16 00:20 White Blood Count 5.4x10^3/uL (4.0-11.0) Red Blood Count 2.88x10^6/uL (3.50-5.40) Hemoglobin 9.2g/dL (12.0-15.5) Hematocrit 28.0% (36.0-47.0) Mean Corpuscular Volume 97fL (79-100) Mean Corpuscular Hemoglobin 32pg (25-35) Mean Corpuscular Hemoglobin Concent 33g/dL (31-37) Red Cell Distribution Width 15.6% (11.5-14.5) Platelet Count 269x10^3/uL (140-400) Neutrophils (%) (Auto) 45% (31-73) Lymphocytes (%) (Auto) 36% (24-48) Monocytes (%) (Auto) 7% (0-9) Eosinophils (%) (Auto) 10% (0-3) Basophils (%) (Auto) 1% (0-3) Neutrophils # (Auto) 2.4x10^3uL (1.8-7.7) Lymphocytes # (Auto) 2.0x10^3/uL (1.0-4.8) Monocytes # (Auto) 0.4x10^3/uL (0.0-1.1) Eosinophils # (Auto) 0.5x10^3/uL (0.0-0.7) Basophils # (Auto) 0.1x10^3/uL (0.0-0.2) Prothrombin Time 13.4SEC (11.7-14.0) Prothromb Time International Ratio 1.1 (0.8-1.1) Sodium Level 143mmol/L (136-145) Potassium Level 4.3mmol/L (3.5-5.1) Chloride Level 107mmol/L (98-107) Carbon Dioxide Level 27mmol/L (21-32) Anion Gap 9 (6-14) Blood Urea Nitrogen 32mg/dL (7-20) Creatinine 1.3mg/dL (0.6-1.0) Estimated GFR (Cockcroft-Gault) 40.2 BUN/Creatinine Ratio 25 (6-20) Glucose Level 98mg/dL (70-99) Calcium Level 10.5mg/dL (8.5-10.1) Magnesium Level 1.9mg/dL (1.8-2.4) Total Bilirubin 1.5mg/dL (0.2-1.0) Aspartate Amino Transf (AST/SGOT) 23U/L (15-37) Alanine Aminotransferase (ALT/SGPT) 35U/L (14-59) Alkaline Phosphatase 161U/L (46-116) Creatine Kinase 28U/L (26-192) Creatine Kinase MB (Mass) 1.0ng/mL (0.0-3.6) Creatine Kinase MB Relative Index % (0-4) XY-Shu-I-Type Natriuretic Peptide 9279pg/mL (0-124) Total Protein 6.5g/dL (6.4-8.2) Albumin 3.4g/dL (3.4-5.0) Albumin/Globulin Ratio 1.1 (1.0-1.7) Thyroid Stimulating Hormone (TSH) 4.682uIU/mL (0.358-3.74) Urine Collection Type Unknown Urine Color Yellow Urine Clarity Clear Urine pH 5.5 Urine Specific [place] 1.025 Urine Protein 100mg/dL (NEG-TRACE) Urine Glucose (UA) Negativemg/dL (NEG) Urine Ketones (Stick) Negativemg/dL (NEG) Urine Blood Moderate (NEG) Urine Nitrite Negative (NEG) Urine Bilirubin Negative (NEG) Urine Urobilinogen Dipstick 1.0mg/dL (0.2 mg/dL) Urine Leukocyte Esterase Negative (NEG) Urine RBC 6-10/HPF (0-2) Urine WBC >40/HPF (0-4) Urine Bacteria 0/HPF (0-FEW) Urine Hyaline Casts Moderate/HPF Urine Granular Casts Occasional/HPF Urine Waxy Casts Occasional/HPF Urine Mucus Slight/LPF Troponin I Quantitative 0.019ng/mL (0.000-0.055) 0.019ng/mL (0.000-0.055) Test 08/07/16 05:45 08/08/16 04:05 White Blood Count 5.5x10^3/uL (4.0-11.0) Red Blood Count 2.79x10^6/uL (3.50-5.40) Hemoglobin 9.0g/dL (12.0-15.5) Hematocrit 26.7% (36.0-47.0) Mean Corpuscular Volume 96fL (79-100) Mean Corpuscular Hemoglobin 32pg (25-35) Mean Corpuscular Hemoglobin Concent 34g/dL (31-37) Red Cell Distribution Width 15.8% (11.5-14.5) Platelet Count 253x10^3/uL (140-400) Neutrophils (%) (Auto) 52% (31-73) Lymphocytes (%) (Auto) 31% (24-48) Monocytes (%) (Auto) 8% (0-9) Eosinophils (%) (Auto) 9% (0-3) Basophils (%) (Auto) 1% (0-3) Neutrophils # (Auto) 2.9x10^3uL (1.8-7.7) Lymphocytes # (Auto) 1.7x10^3/uL (1.0-4.8) Monocytes # (Auto) 0.4x10^3/uL (0.0-1.1) Eosinophils # (Auto) 0.5x10^3/uL (0.0-0.7) Basophils # (Auto) 0.1x10^3/uL (0.0-0.2) Sodium Level 144mmol/L (136-145) 146mmol/L (136-145) Potassium Level 3.9mmol/L (3.5-5.1) 4.2mmol/L (3.5-5.1) Chloride Level 108mmol/L (98-107) 107mmol/L (98-107) Carbon Dioxide Level 30mmol/L (21-32) 31mmol/L (21-32) Anion Gap 6 (6-14) 8 (6-14) Blood Urea Nitrogen 30mg/dL (7-20) 29mg/dL (7-20) Creatinine 1.6mg/dL (0.6-1.0) 1.8mg/dL (0.6-1.0) Estimated GFR (Cockcroft-Gault) 31.6 27.6 Glucose Level 106mg/dL (70-99) 112mg/dL (70-99) Calcium Level 10.3mg/dL (8.5-10.1) 10.5mg/dL (8.5-10.1) Magnesium Level 1.8mg/dL (1.8-2.4) Troponin I Quantitative 0.018ng/mL (0.000-0.055) Triglycerides Level 60mg/dL (0-150) Cholesterol Level 116mg/dL (0-200) LDL Cholesterol, Calculated 60mg/dL (0-100) VLDL Cholesterol, Calculated 12mg/dL (0-40) HDL Cholesterol 44mg/dL (40-60) Cholesterol/HDL Ratio 2.6 Laboratory Tests Test 08/08/16 04:05 Sodium Level 146mmol/L (136-145) Potassium Level 4.2mmol/L (3.5-5.1) Chloride Level 107mmol/L (98-107) Carbon Dioxide Level 31mmol/L (21-32) Anion Gap 8 (6-14) Blood Urea Nitrogen 29mg/dL (7-20) Creatinine 1.8mg/dL (0.6-1.0) Estimated GFR (Cockcroft-Gault) 27.6 Glucose Level 112mg/dL (70-99) Calcium Level 10.5mg/dL (8.5-10.1) Brief Hospital Course Ms. Nathan is 71 yo female admitted for symptoms of acute CHF. She was seen initially in our office and advised to get admitted as an inpt for further treatment. She is significant for CAD/NICM/HLP/HTN/TIA/hypothyroidism. Upon further testing she was noted with pericardial effusion/pleural effusion/renal calculi with hematuria and significant leg edema with contributing venous insufficiency mainly left greater saphenous vein per venous study. She was significantly diuresed with significant improvement in her symptoms and currently compensated. Her creatinine was noted to have increased but this is anticipated with diurese with suspected CKD3. Will monitor as an oupt and maintain hydration adequacy. TTE was done and noted with normal wall motion and preserved EF with polyvalvular insufficiency notable for moderate AI which is stable. Lexiscan was also performed which revealed no ischemia. In regards to her venous insufficiency, this will be addressed on her next appointment with Dr. Walton. Dr. myers was requested to see her as an inpt in regards to her hematuria/right renal calculi and will follow in an outpt basis. She also is known for pulmonary nodule which is followed closely by her cloth washer back tender as an outpt. Also she was noted with nontherapeutic TSH level and her regimen was adjusted. She was then instructed to have her TSH level check in 8 weeks upon discretion of her PCP. Overall, she responded well with her treatment plan. In addition, per tele, there has been no associated arrhythmia that would contribute to her CHF. Will continue with her meds as these are currently optimized. Encouraged compression stockings. Instructed pt to maintain a BP diary, daily weight, diet compliance, and exercise regimen. Lasix PRN to start per symptom and weight parameters. Discussed with primary auto self service station attendant and pt will follow up in our office in 3-4 weeks. Discharge Information Condition at Discharge: Stable Follow Up: Weeks (3-4) Disposition/Orders: D/C to Home Scheduled Aspirin (Aspirin Ec) 1 TAB PO BID (Reported) Atorvastatin Calcium (Atorvastatin Calcium) 1 TAB PO QHS (Reported) Calcium Carbonate (Calci-Chew) 1,000 MG PO DAILY (Reported) Carvedilol (Carvedilol) 1 TAB PO BID (Reported) Cholecalciferol (Vitamin D3) (Vitamin D3) 2,000 UNIT PO DAILY (Reported) Famotidine (Pepcid) 20 MG PO HS Levothyroxine Sodium (Levothyroxine Sodium) 112 MCG PO DAILY07 Losartan Potassium (Losartan Potassium) 25 MG PO DAILY (Reported) Scheduled PRN Furosemide (Lasix) 1 TAB PO DAILY PRN PRN SEE COMMENTS Discontinued Medications Citalopram Hydrobromide (Celexa) 1 TAB PO DAILY (Reported) Cyanocobalamin (Vitamin B-12) (Vitamin B12) 2,500 MCG PO PRN PRN PRN PER PROTOCOL (Reported) Levothyroxine Sodium (Levothyroxine Sodium) 1 TAB PO DAILY (Reported) Patient Instructions Patient Instructions see discharge instructions. KI HYATT APRN Aug 08, 2016 12:28
--- NOTE | 2016-08-10 16:02 | RAD ---
APPROVED REPORT Patient Location : IN-PATIENT Indications Lower Extremity Edema : Bilateral Deep System Deep Venous Reflux present : Left Greater Saphenous Veins (GSV) Significant venous relux noted in the LEFT GSV at the following levels : Superficial Femoral Junction , Proximal Thigh, Mid Thigh, Distal Thigh, Proximal Calf, Mid Calf, Distal Calf Findings Bilateral superficial venous system was evaluated for reflux. The right great saphenous vein measures 5 mm at the saphenofemoral junction and there is no evidence of reflux throughout its course. The le ft great saphenous vein measures 6.7 mm at the saphenofemoral junction and has a reflux time of great er than 3.2 seconds from the groin to the ankle. The bilateral lesser saphenous veins do not demonstr ate any reflux. Critical Notification Critical Value: No <Conclusion> Positive reflux noted in the left greater saphenous vein.
== END 2016-08-08 12:20 | disposition home or self-care (01) | DRG 292 ==
LOC: CVICU 14:20
PROVIDERS: ADMIT Internal Medicine Cardiovascular Disease; ATTEND Internal Medicine Cardiovascular Disease
DX: I50.43 Acute on chronic combined systolic (congestive) and diastolic (congestive) heart failure (principal); I31.3 Pericardial effusion (noninflammatory); I42.8 Other cardiomyopathies; E03.9 Hypothyroidism, unspecified; E78.00 Pure hypercholesterolemia, unspecified; E78.5 Hyperlipidemia, unspecified; I11.0 Hypertensive heart disease with heart failure; I25.119 Atherosclerotic heart disease of native coronary artery with unspecified angina pectoris; I27.2 Other secondary pulmonary hypertension; I34.0 Nonrheumatic mitral (valve) insufficiency; I87.2 Venous insufficiency (chronic) (peripheral); K21.9 Gastro-esophageal reflux disease without esophagitis; N28.1 Cyst of kidney, acquired; Z82.49 Family history of ischemic heart disease and other diseases of the circulatory system; Z86.73 Personal history of transient ischemic attack (TIA), and cerebral infarction without residual deficits; Z87.442 Personal history of urinary calculi; Z90.710 Acquired absence of both cervix and uterus; Z79.899 Other long term (current) drug therapy; N20.0 Calculus of kidney; R31.9 Hematuria, unspecified
CPT/HCPCS: 36415; 71020; 76770; 78452; 80048; 80053; 80061; 81001; 82553; 83735; 83880; 84443; 84484; 85027; 85610; 87086; 93005; 93017; 93306; 93970; 96374; 96375; 96376; A9500; J1650; J1940; J2785

== ENCOUNTER → 2016-08-28 | Outpatient (CLI) | payer MEDICARE, OTHER ==
[2016-08-08 08:55] VITALS: BP 109/63
[~2016-08-28] MED LIST changes: +ASPI81TA9 PO; +ATOR40TA59 PO; +CALC500T10 PO; +FAMO-63 PO; +FURO-69 PO; +LEVO112T4 PO
[2016-08-28 12:49] LABS: CALCIUM 10.4 mg/dL (8.5-10.1); CREATININE 1.6 mg/dL (0.6-1.0); GFR 31.6; POTASSIUM 4.5 mmol/L (3.5-5.1)
== END | disposition home or self-care (01) ==
LOC: LAB 12:22
PROVIDERS: ATTEND Nurse Practitioner Occupational Health
DX: R79.89 Other specified abnormal findings of blood chemistry (principal)
CPT/HCPCS: 36415; 80048

== ENCOUNTER → 2016-10-06 | Outpatient (CLI) | payer MEDICARE, OTHER ==
--- NOTE | 2016-10-06 17:15 | CARD ---
APPROVED REPORT EXAM: Two-dimensional and M-mode echocardiogram with Doppler and color Doppler. Other Information Quality : GoodHR: 78bpm Rhythm : NSR INDICATION Non ischemic cardiomyopathy RISK FACTORS Hypertension 2D DIMENSIONS RVDd3.1 (2.9-3.5cm)Left Atrium(2D)4.0 (1.6-4.0cm) IVSd1.8 (0.7-1.1cm)Aortic Root(2D)3.2 (2.0-3.7cm) LVDd4.6 (3.9-5.9cm)LVOT Diameter2.4 (1.8-2.4cm) PWd1.7 (0.7-1.1cm)LVDs3.2 (2.5-4.0cm) FS (%) 30.0 %SV55.8 ml LVEF(%)57.3 (>50%) Aortic Valve AoV Peak Alok.166.3cm/sAoV VTI26.2cm AO Peak GR.11.1mmHgLVOT VTI 15.69cm AO Mean GR.5mmHgAI P 1/2 [id number] Mitral Valve MV E Iskskvjr247.2cm/sMV E Peak Gr.12mmHg MV DECEL [id number] A Jqfleegy60.9cm/s MV E Mean Gr.4mmHgE/A Ratio2.0 MV A [id number] Tricuspid Valve TR P. [id number]/sRAP [id number] TR Peak Gr.49mmHg Pulmonary Vein S1 Ckadqoqe87.8cm/sS2 Tklgkdkz01.36cm/s D2 Ylcuxaqk67.4cm/sPVa [id number] LEFT VENTRICLE The left ventricle is normal size. There is moderate to severe concentric left ventricular hypertroph y. The left ventricular systolic function is normal. The Ejection Fraction is 50-55%. There is normal LV segmental wall motion. Transmitral Doppler flow pattern is Grade IV-fixed restrictive diastolic d ysfunction. RIGHT VENTRICLE The right ventricle is normal size. There is normal right ventricular wall thickness. The right ventr icular systolic function is normal. ATRIA The left atrium is mildly dilated. The right atrium size is normal. The interatrial septum is intact with no evidence for an atrial septal defect or patent foramen ovale as noted on 2-D or Doppler imagi ng. AORTIC VALVE The aortic valve is mildly thickened. The aortic valve is trileaflet. Doppler and Color Flow revealed moderate aortic regurgitation. There is no significant aortic valvular stenosis. MITRAL VALVE The mitral valve leaflets are mildly thickened. There is no evidence of mitral valve prolapse. There is no mitral valve stenosis. Doppler and Color Flow revealed mild to moderate mitral regurgitation. TRICUSPID VALVE Doppler and Color Flow revealed mild tricuspid regurgitation. The pulmonary artery systolic pressure is estimated at 52 mmHg. There is moderate pulmonary hypertension. PULMONIC VALVE Doppler and Color Flow revealed no pulmonic valvular regurgitation. There is no pulmonic valvular salty nosis. GREAT VESSELS The aortic root is normal in size. The ascending aorta is normal in size. The pulmonary artery is nor mal. The IVC is normal in size and collapses >50% with inspiration. PERICARDIAL EFFUSION There is small left pleural effusion. There is a small circumferential pericardial effusion. Critical Notification Critical Value: No <Conclusion> The left ventricular systolic function is normal. The Ejection Fraction is 50-55%. There is normal LV segmental wall motion. Moderate aortic regurgitation. Mild to moderate mitral regurgitation. Mild tricuspid regurgitation. The pulmonary artery systolic pressure is estimated at 52 mmHg. There is moderate pulmonary hypertension. There is a small circumferential pericardial effusion.
== END | disposition home or self-care (01) ==
LOC: ECHO 10:34
PROVIDERS: ATTEND Internal Medicine Cardiovascular Disease
DX: I08.3 Combined rheumatic disorders of mitral, aortic and tricuspid valves (principal); J90 Pleural effusion, not elsewhere classified
CPT/HCPCS: 93306